=== PATIENT | female | born 1970 | race Two or more races ===

== ENCOUNTER 2017-03-13 07:10 | Emergency (ER) | payer MEDICAID ==
[~2017-03-13] VITALS: Ht 147.3 cm; Wt 50.0 kg
[~2017-03-13 07:10] MED LIST: CARV3.122 PO; CIPR500T87 PO; LEVO100T5 PO
[2017-03-13 07:54] LABS: HEMATOCRIT 43.9 % (34.6-47.8); HEMOGLOBIN 14.9 g/dL (11.7-16.4); WHITE BLOOD COUNT 6.9 x10^3/uL (3.4-10)
[2017-03-13] MEDS ORDERED: ASPIRIN 81 MG TABLET CHEW PO ONE (08:00)
[2017-03-13] MEDS ORDERED: SODIUM CHLORIDE FLUSH 10ML SYR IVF ONE (08:00)
[2017-03-13 08:09] LABS: BLOOD UREA NITROGEN 10 mg/dL (7-18)
[2017-03-13] MEDS ORDERED: ASPIRIN 81 MG TABLET CHEW ONE (08:12)
[2017-03-13 08:14] LABS: ASPARTATE AMINO TRANSFERASE 17 U/L (15-37)
[2017-03-13 08:15] LABS: IS PT STATUS REG ER OR PRE ER? YES
[2017-03-13 09:03] VITALS: BP 119/63
== END 2017-03-13 09:05 | disposition home or self-care (01) ==
LOC: ED 08:59
DX: M94.0 Chondrocostal junction syndrome [Tietze] (principal); I10 Essential (primary) hypertension
CPT/HCPCS: 36415; 71010; 80053; 84484; 85025; 85379; 93005; 99285

== ENCOUNTER 2018-02-01 19:02 | Emergency (ER) | payer MEDICAID, OTHER ==
[~2018-02-01] VITALS: Ht 147.3 cm; Wt 48.0 kg
[2018-02-01] MEDS ORDERED: SODIUM CHLORIDE FLUSH 10ML SYR IVF ONE (19:30)
[2018-02-01] MEDS ORDERED: KETOROLAC 30 MG/1 ML ONE (19:35)
[2018-02-01] MEDS ORDERED: DIPHENHYDRAMINE 50 MG/ML, 1ML ONE (19:35)
[2018-02-01] MEDS ORDERED: PROCHLORPERAZINE 5 MG/ML, 2ML ONE (19:35)
[2018-02-01 19:57] LABS: BASOPHILS # (AUTO) 0.03 x10^3/uL (0-0.1); BASOPHILS % (AUTO) 0 % (0-1); EOSINOPHILS # (AUTO) 0.36 x10^3/uL (0-0.4); EOSINOPHILS % (AUTO) 3 % (1-7); LYMPHOCYTES % (AUTO) 16 % (22-44); MD NO; MEAN CORPUSCULAR HEMOGLOBIN 32.3 pg (27.0-34.8); MEAN CORPUSCULAR HGB CONC 34.8 g/dL (32.4-35.8); MEAN CORPUSCULAR VOLUME 92.9 fL (80-100); MEAN PLATELET VOLUME 6.9 fL (7.4-10.4); MONOCYTES # (AUTO) 0.96 x10^3/uL (0.2-0.8); MONOCYTES % (AUTO) 8 % (2-9); NEUTROPHILS # (AUTO) 9.12 x10^3/uL (1.8-6.8); NEUTROPHILS % (AUTO) 73 % (42-75); PLATELET COUNT 307 x10^3/uL (130-400); RED BLOOD COUNT 4.73 x10^6/uL (3.82-5.3)
[2018-02-01 19:59] LABS: MICROSCOPIC AUTO
[2018-02-01 20:00] LABS: CULTURE INDICATED? NO
[2018-02-01] MEDS ORDERED: DIPHENHYDRAMINE 50 MG/ML, 1ML IVPush ONE (20:00)
[2018-02-01] MEDS ORDERED: PROCHLORPERAZINE 5 MG/ML, 2ML IVPush ONE (20:00)
[2018-02-01] MEDS ORDERED: KETOROLAC 30 MG/1 ML IVPush ONE (20:00)
[2018-02-01 20:05] LABS: ALANINE AMINOTRANSFERASE 29 U/L (12-78); ALBUMIN 3.4 g/dL (3.4-5.0); ANION GAP 10 mmol/L (5-15); CALCIUM 8.2 mg/dL (8.5-10.1); CHLORIDE 103 mmol/L (98-107); CREATININE 0.74 mg/dL (0.55-1.02)
[2018-02-01 20:10] LABS: ALKALINE PHOSPHATASE 53 U/L (45-117); BILIRUBIN,TOTAL 0.3 mg/dL (0.2-1.0); TOTAL PROTEIN 7.2 g/dL (6.4-8.2); TROPONIN I < 0.015 ng/mL (0.000-0.045)
[2018-02-01 21:24] VITALS: BP 137/81
== END 2018-02-01 21:58 | disposition home or self-care (01) ==
LOC: ED 21:52
DX: R51 Headache (principal); I10 Essential (primary) hypertension; E05.00 Thyrotoxicosis with diffuse goiter without thyrotoxic crisis or storm
CPT/HCPCS: 36415; 70450; 71045; 80053; 81001; 84484; 85025; 93005; 96374; 96375; 99285; J1200; J1885

== ENCOUNTER → 2019-05-27 | Outpatient (CLI) | payer BC, OTHER ==
[~2019-05-27] MED LIST changes: +OMNIPAQUE 350 MG/ML, 150 ML BOTTLE ONE
== END | disposition home or self-care (01) ==
LOC: CFH 10:01
PROVIDERS: ATTEND Urology
DX: N83.291 Other ovarian cyst, right side (principal); K76.0 Fatty (change of) liver, not elsewhere classified; K76.89 Other specified diseases of liver
CPT/HCPCS: 74178; Q9967